=== PATIENT | male | born 1960 | race Caucasian/White ===

== ENCOUNTER → 2016-07-21 | Outpatient (CLI) | payer OTHER ==
--- NOTE | 2016-07-21 10:05 | XR ---
EXAMINATION TYPE: XR Hip Complete RT DATE OF EXAM: 07/21/2016 10:01 AM COMPARISON: NONE HISTORY: Right hip pain TECHNIQUE: 2 views submitted FINDINGS: There is no evidence of erosive change or acute fracture. Hypertrophic change and narrowing of the joint space. May be a degree of soft tissue calcification or ossification on the oblique view. IMPRESSION: 1. No evidence of acute fracture or dislocation. 2. Significant arthropathy correlate for femoral acetabular impingement. Follow-up MRI could be obtai maxine.
== END | disposition home or self-care (01) ==
LOC: RADXRMAIN 09:38
PROVIDERS: ATTEND Psychiatry & Neurology Neurology
DX: M12.851 Other specific arthropathies, not elsewhere classified, right hip (principal); M15.9 Polyosteoarthritis, unspecified
CPT/HCPCS: 73502

== ENCOUNTER → 2016-07-28 | Outpatient (CLI) | payer OTHER ==
--- NOTE | 2016-07-28 09:36 | XR ---
EXAMINATION TYPE: XR Hip Complete LT DATE OF EXAM: 07/28/2016 9:29 AM COMPARISON: 07/21/2016 right hip HISTORY: Hip pain TECHNIQUE: 2 views submitted FINDINGS: There is no evidence of erosive change or acute fracture. Sclerotic density involving the left iliac bone compatible with bone island. Mild concentric narrowing the joint space. IMPRESSION: 1. No evidence of acute fracture or dislocation. 2. Mild arthritic changes. Findings involving the right hip are far greater than the left.
== END | disposition home or self-care (01) ==
LOC: RADXRMAIN 09:12
PROVIDERS: ATTEND Psychiatry & Neurology Neurology
DX: M25.552 Pain in left hip (principal)
CPT/HCPCS: 73502

== ENCOUNTER → 2016-10-15 | Outpatient (CLI) | payer OTHER ==
[2016-10-15 11:33] LABS: Basophils % (A) 0 %; CH 31.3; CHCM 33.8; Eosinophils % (A) 1 %; HCT 44.9 % (39.0-53.0); HDW 2.28; HGB 15.3 gm/dL (13.0-17.5); Luc % (Auto) 1; Lymphocytes # (A) 1.2 k/uL (1.0-4.8); Lymphocytes % (A) 17 %; MCH 31.7 pg (25.0-35.0); MCHC 34.2 g/dL (31.0-37.0); MCV 92.9 fL (80.0-100.0); Mean Platelet Volume 7.2; Monocytes # (A) 0.5 k/uL (0-1.0); Monocytes % (A) 7 %; Neutrophils # (A) 5.3 k/uL (1.3-7.7); Neutrophils % (A) 74 %; RBC 4.83 m/uL (4.30-5.90); RDW 12.7 % (11.5-15.5); WBC 7.2 k/uL (3.8-10.6)
== END | disposition home or self-care (01) ==
LOC: LABWHC1 10:46
PROVIDERS: ATTEND Internal Medicine Critical Care Medicine
DX: Z01.812 Encounter for preprocedural laboratory examination (principal)
CPT/HCPCS: 36415; 85025

== ENCOUNTER → 2018-05-05 | Outpatient (CLI) | payer OTHER | LOC: LABWHC1 11:20 | PROVIDERS: ATTEND Urology | DX: R97.20 Elevated prostate specific antigen [PSA] (principal) | CPT/HCPCS: 36415; 84153 ==

== ENCOUNTER → 2018-07-19 | Outpatient (CLI) | payer OTHER ==
[2018-07-19 13:06] LABS: Basophils % (A) 1 %; Eosinophils # (A) 0.3 k/uL (0-0.7); Eosinophils % (A) 4 %; Lymphocytes # (A) 1.3 k/uL (1.0-4.8); Lymphocytes % (A) 20 %; MCH 29.1 pg (25.0-35.0); MCHC 33.3 g/dL (31.0-37.0); MCV 87.5 fL (80.0-100.0); Mean Platelet Volume 7.3; Monocytes # (A) 0.4 k/uL (0-1.0); Monocytes % (A) 7 %; Neutrophils # (A) 4.3 k/uL (1.3-7.7); Neutrophils % (A) 67 %; Platelet Count 300 k/uL (150-450); RBC 5.15 m/uL (4.30-5.90); RDW 13.7 % (11.5-15.5); WBC 6.4 k/uL (3.8-10.6)
[2018-07-19 16:05] LABS: Erythrocyte Sedimentation Rate 4 mm/hr (0-15)
== END | disposition home or self-care (01) ==
LOC: LABWHC1 12:13
PROVIDERS: ATTEND Orthopaedic Surgery Sports Medicine
DX: Z47.1 Aftercare following joint replacement surgery (principal); Z96.641 Presence of right artificial hip joint
CPT/HCPCS: 36415; 85025; 85652; 86140

== ENCOUNTER → 2018-07-28 | Outpatient (CLI) | payer OTHER ==
[2018-07-28 19:46] LABS: Rheumatoid Factor 8 IU/mL (0-15)
== END | disposition home or self-care (01) ==
LOC: LABWHC1 13:17
PROVIDERS: ATTEND Otolaryngology
DX: M25.50 Pain in unspecified joint (principal); M19.90 Unspecified osteoarthritis, unspecified site
CPT/HCPCS: 36415; 86038; 86431

== ENCOUNTER 2019-04-04 09:50 | Day surgery (SDC) | payer OTHER ==
[2019-04-02 17:04] VITALS: BMI 24.4
[~2019-04-04 09:50] MED LIST: LACTATED RINGERS 1,000 ML IV SCH
[2019-04-04 10:15] VITALS: TEMP 97
[2019-04-04] MEDS ORDERED: LIDOCAINE 1% 20 ML VIAL (10MG/ML) FOR IV START INTRADERMA ONE (10:20)
[2019-04-04] MEDS ORDERED: PROPOFOL 10 MG/ML 20 ML VIAL IV ONE (10:35)
--- NOTE | 2019-04-04 10:58 | P.PCN ---
Date of Procedure: 04/04/19 Procedure(s) Performed: BRIEF HISTORY: Patient is a 58-year-old pleasant male scheduled for an elective colonoscopy as a part of screening for colorectal neoplasia. PROCEDURE PERFORMED: Colonoscopy. PREOPERATIVE DIAGNOSIS: Screening for colon cancer. IV sedation per Anesthesia. PROCEDURE: After informed consent was obtained, the patient, was brought into the endoscopy unit. IV sedation was administered by Anesthesia under continuous monitoring. Digital rectal examination was normal. Initially the Olympus CF-160 flexible video colonoscope was then inserted in the rectum, gradually advanced into the cecum without any difficulty. Careful examination was performed as the scope was gradually being withdrawn. Ileocecal valve and the appendiceal orifice were visualized and appeared normal. Prep was excellent. Mucosa of the cecum, ascending colon, transverse colon, descending colon, sigmoid colon, and rectum appeared normal. Scattered sigmoid diverticulosis.Retroflexion was performed in the rectum and no lesions were seen. The patient tolerated the procedure well. IMPRESSION: Normal-appearing colon from rectum to cecum with no evidence of colorectal neoplasia . Scattered sigmoid diverticulosis RECOMMENDATIONS: Findings of this examination were discussed with the patient as well as his family. He was advised to have a repeat screening colonoscopy in 10 years.
[2019-04-04 11:24] VITALS: BP 120/81; PULSE 66; RESP 16
== END 2019-04-04 11:44 | disposition home or self-care (01) ==
LOC: ORWHC2ENDO 09:50
PROVIDERS: ATTEND Internal Medicine Gastroenterology
DX: Z12.11 Encounter for screening for malignant neoplasm of colon (principal); K57.30 Diverticulosis of large intestine without perforation or abscess without bleeding; I10 Essential (primary) hypertension; E78.5 Hyperlipidemia, unspecified; M50.30 Other cervical disc degeneration, unspecified cervical region; Z79.899 Other long term (current) drug therapy
CPT/HCPCS: J2704; G0121; 45378

== ENCOUNTER → 2020-02-11 | Outpatient (CLI) | payer OTHER ==
[2020-02-11 14:29] LABS: Basophils # (A) 0.1 k/uL (0-0.2); Basophils % (A) 1 %; Eosinophils # (A) 0.1 k/uL (0-0.7); Eosinophils % (A) 2 %; HCT 48.9 % (39.0-53.0); Lymphocytes # (A) 1.5 k/uL (1.0-4.8); Lymphocytes % (A) 19 %; MCH 31.2 pg (25.0-35.0); MCHC 32.8 g/dL (31.0-37.0); MCV 95.3 fL (80.0-100.0); Mean Platelet Volume 7.7; Monocytes # (A) 0.5 k/uL (0-1.0); Monocytes % (A) 7 %; Neutrophils # (A) 5.6 k/uL (1.3-7.7); Neutrophils % (A) 70 %; Platelet Count 234 k/uL (150-450); RBC 5.13 m/uL (4.30-5.90); RDW 12.4 % (11.5-15.5)
[2020-02-11 19:21] LABS: African American GFR (CKD) 94.4 (60.0-200.0); Albumin 4.7 g/dL (3.80-4.90); Albumin/Globulin Ratio 2.24 (1.60-3.17); Anion Gap 8.4 mmol/L (4.00-12.00); Calcium 9.5 mg/dL (8.7-10.3); Carbon Dioxide 28.6 mmol/L (21.6-31.8); Chol/HDL Ratio 1.88; Globulin 2.1 g/dL (1.6-3.3); LDL Cholesterol,Calculated 60.6 mg/dL (0.0-131.0); Non-African American GFR(CKD) 81.4 (60.0-200.0); Potassium 4.3 mmol/L (3.5-5.5); Total Bilirubin 0.7 mg/dL (0.3-1.2); Total Protein 6.8 g/dL (6.2-8.2); VLDL Calculation 14.4 mg/dL (5.00-40.00)
[2020-02-11 19:29] LABS: PSA Annual Screen 1.4 ng/mL (0.0-4.0); T4, Free (Free Thyroxine) 1.2 ng/dL (0.80-1.80)
[2020-02-11 21:16] LABS: Hemoglobin A1C 5.4 % (4.0-6.0)
== END | disposition home or self-care (01) ==
LOC: LABWHC1 12:09
PROVIDERS: ATTEND Internal Medicine Critical Care Medicine
DX: Z00.00 Encounter for general adult medical examination without abnormal findings (principal); Z12.5 Encounter for screening for malignant neoplasm of prostate; G47.00 Insomnia, unspecified
CPT/HCPCS: 84439; 80061; 80053; 84443; 85025; 82306; 83036; 36415; G0103

== ENCOUNTER → 2021-02-16 | Outpatient (CLI) | payer BC ==
--- NOTE | 2021-02-16 21:47 | MR ---
EXAMINATION TYPE: MR nevilleine/lspine wo con DATE OF EXAM: 02/16/2021 COMPARISON: MRI cervical and lumbar spine December 01, 2015 HISTORY: Chronic Lumbar pain [id number] with pain radiating toward RT buttock and Cervical pain x8 year s with occasional pain in both arms TECHNIQUE: Multiplanar, multisequence imaging of the cervical and lumbar spine are performed without IV contrast. FINDINGS: C-SPINE: Sagittal images of the cervical spine show the craniocervical junction to remain within normal limits . The cervical and upper thoracic spinal cord remains normal in course, caliber, and signal. There i s grade 1 retrolisthesis C6 on C7 redemonstrated. The vertebral body heights are normal. There is mi ld to moderate disc space narrowing at C6-C7 level now present more prominent from prior. Persistent hemangioma anterior C7 vertebral body level redemonstrated. Mild to moderate multilevel anterior spu rring in the lower cervical spine is now present. Axial images show the C2-C3 level to remain within normal limits. Axial images at the C3-C4 level redemonstrate right greater than left uncovertebral facet degenerativ e changes as well as right broad-based paracentral/foraminal disc protrusion effacing anterolateral t hecal sac and causing severe right-sided neural foraminal narrowing. Mild left-sided neural foraminal narrowing redemonstrated. No significant degenerative progression from prior. Axial images at C4-C5 level redemonstrate some uncovertebral facet degenerative changes causing mild right greater than left bilateral neural foraminal narrowing. Tiny broad-based right paracentral disc protrusion mildly effaces the anterior thecal sac. Findings more prominent from 2016 MRI. Axial images at C5-C6 level redemonstrate more prominent uncovertebral facet degenerative changes dylan aterally with small central disc protrusion mildly effacing into thecal sac. There is mild bilateral neural foraminal narrowing at this level identified. Findings not significantly changed from prior. Axial images at the C6-C7 level redemonstrate spondylolisthesis and more prominent spur disc complex with marginal spurring effacing the anterior thecal sac and causing fairly advanced bilateral neural foraminal narrowing more prominent from prior. Axial images at C7-T1 level remain within normal limits. IMPRESSION: Multilevel degenerative changes in cervical spine as detailed above with findings most p rominent at C6-C7 level showing interval degenerative progression from 2016 MRI. L-SPINE: FINDINGS: Sagittal images of the lumbar spine show vertebral body height is to remain satisfactory. N ew slight grade 1 anterolisthesis L4 on L5. More prominent multilevel disc desiccation. Mild disc spa ce narrowing L5-S1 level is redemonstrated. The conus medullaris remains normal in position and signa l ending at the inferior L1 vertebral body level. The bone marrow signal intensity is within normal limits. Mild multilevel anterior spurring is redemonstrated. Axial images at the T12-L1 level remain within normal limits. Axial images at L1-L2 level show stable mild broad disc bulge mildly effacing anterior thecal sac, bi lateral neural foramina are patent. Axial images at L2-L3 and L3-L4 levels remain within normal limits. Axial images at L4-L5 level show new spondylolisthesis and more prominent moderate to severe facet de generative changes and ligamentum flavum hypertrophy and more prominent moderate to severe broad-base d posterior disc protrusion effacing the anterior and posterior lateral thecal sac more prominent fro m prior. There is moderate to severe left and moderate right-sided neural foraminal narrowing now pr esent. Axial images at L5-S1 level small broad disc bulge and mild facet degenerative changes bilaterally. Spinal canal is minimally effaced anteriorly. There is moderate bilateral neural foraminal narrowing redemonstrated. No significant change from prior. There is slightly larger 8 mm oval T2 hyperintense lesion midpole level right kidney posteriorly on a xial image 27 felt to reflect simple thin-walled cyst. IMPRESSION: Multilevel degenerative changes in the lumbar spine most prominent at L4-L5 level with i nterval degenerative progression from 2016 MRI as detailed above
== END | disposition home or self-care (01) ==
LOC: RADMRIMAIN 17:37
PROVIDERS: ATTEND Psychiatry & Neurology Neurology
DX: M51.36 Other intervertebral disc degeneration, lumbar region (principal); M47.816 Spondylosis without myelopathy or radiculopathy, lumbar region
CPT/HCPCS: 72141; 72148

== ENCOUNTER → 2021-03-30 | Outpatient (CLI) | payer BC | END | disposition home or self-care (01) | LOC: LABWHC1 13:08 | PROVIDERS: ATTEND Internal Medicine Critical Care Medicine | DX: Z20.822 Contact with and (suspected) exposure to COVID-19 (principal) | CPT/HCPCS: 36415; 86769 ==